=== PATIENT | male | born 1985 | race African-American/Black ===

== ENCOUNTER 2021-03-02 13:22 | Inpatient (IN) | payer MEDICAID, OTHER ==
[~2021-03-02] VITALS: Ht 182.9 cm; Wt 82.4 kg
[2021-03-02] MEDS ORDERED: SODIUM CHLORIDE 0.9% 1,000 ML IVB ONE (13:45)
[2021-03-02 16:55] LABS: Basophils # (auto) 0.1 10 ^3/uL (0-0.2); Eosinophils # (auto) 0 10 ^3/uL (0-0.8); Eosinophils % (auto) 0.1 % (0.0-7.0); Hematocrit 41.6 % (41.0-53.0); Hemoglobin 14.1 g/dL (13.5-17.5); Lymphocytes # (auto) 1.2 10 ^3/uL (0.4-5.4); Lymphocytes % (auto) 15.6 % (10.0-50.0); Mean Corpuscular Hemoglobin 30.6 pg (28.0-32.0); Mean Corpuscular Hgb Conc. 33.9 g/dL (32.0-36.0); Mean Corpuscular Volume 90.4 fL (80.0-100.0); Monocytes # (auto) 0.9 10 ^3/uL (0-1.3); Monocytes % (auto) 11.6 % (0.0-12.0); Neutrophils # (auto) 5.5 10 ^3/uL (1.6-8.6); Neutrophils % (auto) 71.7 % (37.0-80.0); Red Cell Distribution Width 13.4 % (11.8-14.3); White Blood Cell 7.7 10^3/uL (4.4-10.8)
[2021-03-02 17:14] LABS: Albumin 4.3 g/dL (3.4-5.0); Calcium 9.1 mg/dL (8.5-10.1); Potassium 3.6 mmol/L (3.5-5.1)
[2021-03-02 17:17] LABS: BUN/Creatinine Ratio 24.1; Bilirubin, Total 2.2 mg/dL (0.2-1.0); Total Protein 8.3 g/dL (6.4-8.2)
[2021-03-02] MEDS ORDERED: MORPHINE SULFATE INJECTION 2 MG/ML SYRG IV PRN (19:15)
[2021-03-02] MEDS ORDERED: HALOPERIDOL LACTATE 5 MG/ML INJ VIAL IM PRN (19:15)
[2021-03-02] MEDS ORDERED: HYDROcodone-ACET 5/325MG TAB PO PRN (19:15)
[2021-03-02] MEDS ORDERED: FOLIC ACID 1 MG, MULTIPLE VITAMIN 10 ML, THIAMINE INJ 100 MG in D5W 5% 1,000 ML INJ SCH (19:15)
[2021-03-02] MEDS ORDERED: ACETAMINOPHEN 500 MG TAB PO PRN (19:15)
[2021-03-02] MEDS ORDERED: ONDANSETRON HCL 4 MG/2 ML VIAL IV PRN (19:15)
[2021-03-02 21:36] LABS: Folate (Folic Acid) 10.73 ng/mL (5.38-24)
[2021-03-02 22:00] VITALS: BP 135/69
[2021-03-02] MEDS: FOLIC ACID 1 MG, MULTIPLE VITAMIN 10 ML, THIAMINE INJ 100 MG in D5W 5% 1,000 ML INJ SCH (22:32)
[2021-03-03 04:33] VITALS: BP 127/76
[2021-03-03 08:57] VITALS: BP 150/60
[2021-03-03] MEDS: FAMOTIDINE 20 MG TAB PO SCH ×2 (10:00→10:38)
[2021-03-03] MEDS: FOLIC ACID 1 MG, MULTIPLE VITAMIN 10 ML, THIAMINE INJ 100 MG in D5W 5% 1,000 ML INJ SCH (12:21)
[2021-03-03 13:00] VITALS: BP 148/60
[2021-03-03] MEDS ORDERED: LORazepam 2MG/ML-1ML VIAL IV ONE (14:15)
[2021-03-03] MEDS: LORazepam 2MG/ML-1ML VIAL IV SCH (21:14)
[2021-03-03] MEDS ORDERED: LORazepam 2MG/ML-1ML VIAL IV PRN (21:30)
[2021-03-04 05:00] VITALS: BP 138/62
[2021-03-04 05:59] LABS: Urine Bacteria FEW /hpf (None Seen); Urine Blood Negative /uL (Negative); Urine Hyaline Cast FEW /lpf (0 - 2); Urine Mucus FEW (None Seen); Urine Specific Gravity 1.015 (1.001-1.035); Urine WBC 1 /hpf (0 - 3)
[2021-03-04] MEDS: LORazepam 2MG/ML-1ML VIAL IV SCH ×3 (06:00→22:03)
[2021-03-04 06:13] LABS: Alcohol, Urine < 3.0 mg/dL (0-10); Amphetamine Screen, Urine NEGATIVE (NEGATIVE); Barbiturate Scree,Urine NEGATIVE (NEGATIVE); Benzodiazephine Screen, Urine NEGATIVE (NEGATIVE); Cannabinoid Screen, Urine NEGATIVE (NEGATIVE); Cocaine Screen, Urine NEGATIVE (NEGATIVE); Opiate Scree,Urine NEGATIVE (NEGATIVE); Phencyclidine Screen, Urine NEGATIVE (NEGATIVE)
[2021-03-04 07:06] LABS: RPR Non Reactive (Non Reactive)
[2021-03-04 08:00] VITALS: BP 83/48
[2021-03-04 08:44] VITALS: BP 83/48
[2021-03-04] MEDS: FAMOTIDINE 20 MG TAB PO SCH (09:22)
[2021-03-04 13:00] VITALS: BP 118/68
[2021-03-04] MEDS ORDERED: ERGOCALCIFEROL 50,000 UNIT(1.25MG) CAP PO SCH (14:15)
[2021-03-04 16:52] VITALS: BP 103/62
[2021-03-04 22:05] VITALS: BP 125/71
[2021-03-05 05:04] VITALS: BP 116/68
[2021-03-05] MEDS: LORazepam 2MG/ML-1ML VIAL IV SCH ×3 (05:55→22:05)
[2021-03-05 09:00] VITALS: BP 126/80
[2021-03-05] MEDS: FAMOTIDINE 20 MG TAB PO SCH (09:29)
[2021-03-05 13:00] VITALS: BP 122/71
[2021-03-05 17:00] VITALS: BP 131/89
[2021-03-05 22:00] VITALS: BP 126/73
[2021-03-05] MEDS: OLANZapine 5 MG TAB PO SCH (22:06)
[2021-03-06] MEDS: LORazepam 2MG/ML-1ML VIAL IV SCH ×3 (06:00→22:01)
[2021-03-06 08:42] VITALS: BP 119/70
[2021-03-06] MEDS: FAMOTIDINE 20 MG TAB PO SCH (09:19)
[2021-03-06 13:00] VITALS: BP 114/68
[2021-03-06 16:57] VITALS: BP 128/75
[2021-03-06 20:00] VITALS: BP 126/76
[2021-03-06 21:32] VITALS: BP 126/76
[2021-03-06] MEDS: OLANZapine 5 MG TAB PO SCH (22:01)
[2021-03-07 05:27] VITALS: BP 93/61
[2021-03-07] MEDS: LORazepam 2MG/ML-1ML VIAL IV SCH ×3 (06:00→22:00)
[2021-03-07 09:00] VITALS: BP 97/54
[2021-03-07] MEDS: FAMOTIDINE 20 MG TAB PO SCH (09:37)
[2021-03-07 13:00] VITALS: BP 116/75
[2021-03-07 17:00] VITALS: BP 111/63
[2021-03-07 20:00] VITALS: BP 117/76
[2021-03-07 22:00] VITALS: BP 117/76
[2021-03-07] MEDS: OLANZapine 5 MG TAB PO SCH (22:00)
[2021-03-08 04:56] VITALS: BP 109/56
[2021-03-08] MEDS: LORazepam 2MG/ML-1ML VIAL IV SCH ×2 (05:49→15:42)
[2021-03-08 08:50] VITALS: BP 116/65
[2021-03-08] MEDS: FAMOTIDINE 20 MG TAB PO SCH (10:24)
[2021-03-08 13:00] VITALS: BP 119/67
[2021-03-08 17:00] VITALS: BP 114/57
== END 2021-03-08 18:47 | DRG 421 ==
LOC: EDBD 13:22 → ER 13:22 → OVERFLOW 19:15 → WEST WING 21:05
PROVIDERS: ADMIT Nurse Practitioner Acute Care; ATTEND Hospitalist
DX: R62.7 Adult failure to thrive (principal); G93.41 Metabolic encephalopathy; F20.2 Catatonic schizophrenia; E86.0 Dehydration; F32.9 Major depressive disorder, single episode, unspecified; E55.9 Vitamin D deficiency, unspecified; Z81.8 Family history of other mental and behavioral disorders; Z82.49 Family history of ischemic heart disease and other diseases of the circulatory system; Z83.3 Family history of diabetes mellitus; Z20.822 Contact with and (suspected) exposure to COVID-19
CPT/HCPCS: 36415; 70551; 80053; 80307; 80320; 81001; 82306; 82607; 82746; 83735; 84425; 84439; 84443; 85025; 86592; 87426; 93005; 95819; 96361; 96365; G0378

== ENCOUNTER 2024-08-02 23:45 | Emergency (ER) | payer MEDICAID ==
[~2024-08-02] VITALS: Ht 188 cm; Wt 80.8 kg
[2024-08-03 00:10] VITALS: BP 125/95; PULSE 113; RESP 20; TEMP 97.9; O2SAT 95
[2024-08-03] MEDS ORDERED: SILV1CRE82 TOP (00:41)
== END 2024-08-03 00:48 | disposition home or self-care (01) ==
LOC: ER 23:45
DX: S52.001D Unspecified fracture of upper end of right ulna, subsequent encounter for closed fracture with routine healing (principal); T21.1 Burn of first degree of trunk; F12.10 Cannabis abuse, uncomplicated; Z76.0 Encounter for issue of repeat prescription; Z82.49 Family history of ischemic heart disease and other diseases of the circulatory system
CPT/HCPCS: 29125

== ENCOUNTER 2024-08-21 05:56 | Emergency (ER) | payer MEDICAID ==
[~2024-08-21] VITALS: Ht 185.4 cm; Wt 100.0 kg
[2024-08-21 05:56] VITALS: BP 148/91; PULSE 128; RESP 20; O2SAT 97
[~2024-08-21 05:56] MED LIST: SILV1CRE82 TOP
== END 2024-08-21 07:42 | disposition left against medical advice (07) ==
LOC: ER 05:56
DX: S62.91XD Unspecified fracture of right hand, subsequent encounter for fracture with routine healing (principal); Z76.0 Encounter for issue of repeat prescription; X58.XXXD Exposure to other specified factors, subsequent encounter

== ENCOUNTER 2024-09-13 03:49 | Emergency (ER) | payer MEDICAID ==
[~2024-09-13] VITALS: Ht 188 cm; Wt 85.0 kg
[2024-09-13 03:53] VITALS: BP 153/75; PULSE 88; RESP 16; TEMP 97.5; O2SAT 99
[2024-09-13] MEDS: IBUPROFEN 800 MG TAB PO ONE (04:19)
[2024-09-13] MEDS ORDERED: CLOTCRE3 EX (04:31)
--- NOTE | 2024-09-13 04:33 | ED.PDOC ---
Back pain HPI HPI Comments This is a 31-year-old homeless man presents to the ED chief complaint bilateral foot pain. Patient reports dryness and cracking skin, describes pain as burning, states has no lotion has been applying lotion on his feet states has been cold symptoms are worse at night with the cold. Denies any known injury. Denies numbness or weakness, fever chills nausea or vomiting. 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 08/03/24 Information Source: Patient Mode of Arrival: Ambulatory Past Medical History PAST MEDICAL HISTORY: Denies Surgical History: Denies all surgeries Family History Family History: Reviewed,noncontributory to illness, Family hx of DM, Family hx of HTN Family History (Other): Schizophrenia Social History Smoker: Non-Smoker Alcohol: Denies ETOH Use Drugs: Marijuana Lives In: Home Constitutional: denies: chills, diaphoresis, fatigue, fever, malaise, sweats, weakness, others EENTM: denies: blurred vision, double vision, ear bleeding, ear discharge, ear drainage, ear pain, ear ringing, eye pain, eye redness, hearing loss, mouth pain, mouth swelling, nasal discharge, nose bleeding, nose congestion, nose pain, photophobia, tearing, throat pain, throat swelling, voice changes, others Respiratory: denies: cough, hemoptysis, orthopnea, SOB at rest, shortness of breath, SOB with excertion, stridor, wheezing, others Cardiovascular: denies: chest pain, dizzy spells, diaphoresis, Dyspnea on exertion, edema, irregular heart beat, left arm pain, lightheadedness, palpitations, PND, syncope, others Gastrointestinal: denies: abdomen distended, abdominal pain, blood streaked bowels, constipated, diarrhea, dysphagia, difficulty swallowing, hematemesis, melena, nausea, poor appetite, poor fluid intake, rectal bleeding, rectal pain, vomiting, others Genitourinary: denies: burning, dysuria, flank pain, frequency, hematuria, incontinence, penile discharge, penile sore, pain, testicle pain, testicle swelling, urgency, others Neurological: denies: dizziness, fainting, headache, left sided numbness, left sided weakness, numbness, paresthesia, pre-existing deficit, right sided numbness, right sided weakness, seizure, speech problems, tingling, tremors, weakness, others Musculoskeletal: reports: others (Bilateral foot pain); denies: back pain, gout, joint pain, joint swelling, muscle pain, muscle stiffness, neck pain Integumetry: reports: rash (Dry skin bilateral feet); denies: bruises, change in color, change in hair/nails, dryness, laceration, lesions, lumps, wounds, o thers Allergic/Immunocompromised: denies: Difficulty Healing, Frequent Infections, Hives, Itching, others Hematologic/Lymphatic: denies: anemia, blood clots, easy bleeding, easy bruising, swollen glands, others Endocrine: denies: excessive hunger, excessive sweating, excessive thirst, excessive urination, flushing, intolerance to cold, intolerance to heat, unexplained weight gain, unexplained weight loss, others Psychiatric: denies: anxiety, bipolar disorder, depression, hopeless, panic disorder, schizophrenia, sleepless, suicidal, others Physical Exam General Appearance: No Apparent Distress, Normal HEENT: Pharynx Normal Neck: Full Range of Motion, Non-Tender Respiratory: Lungs Clear, No Respiratory Distress, Normal Breath Sounds Cardiovascular: No Murmur, Normal Peripheral Pulses, Regular Rate/Rhythm Breast Exam: Deferred Gastrointestinal: Non Tender, Soft Genitalia: Deferred Pelvic: Deferred Rectal: Deferred Extremities: Normal capillary refill, Normal inspection, Normal range of motion, Non-tender, No pedal edema Musculoskeletal : Apperance: Normal Neurologic: Alert, appellate conferee II-XII nml as Tested, No Motor Deficits, Normal Affect, Normal Mood, No Sensory Deficits Cerebellar Function: Normal Reflexes: Normal Skin: Dry, Normal Color, Rash (Noted bilateral plantar aspect of feet noted dry skin slight erythema noted open lesions, bleeding, drainage or streaking.), Warm Lymphatic: No Adenopathy Was a procedure done? Was a procedure done?: No Back Pain Differential Dx Differential Diagnosis: Musculoskeletal Pain X-Ray, Labs, Meds, VS Vital Signs Date Time Temp Pulse Resp B/P (MAP) Pulse Ox O2 Delivery O2 Flow Rate FiO2 11/8/24 03:53 97.5 88 16 153/75 (101 99 Current Medications Medications (Trade) Dose Ordered Sig/Adriano Route Start Time Stop Time Status Last Admin Ibuprofen (Motrin Tablet) 800 mg ONCE ONCE PO 09/13/24 04:15 09/13/24 04:16 DC 09/13/24 04:19 X-Ray, Labs, Meds, VS Comment Likely a tinea pedis we will prescribe trial of antifungal steroid cream. Advised to keep socks and shoes dry. Advised to applied daily lotion once infection has resolved. Advised to follow up with his PCP in 2-3 days as necessary. Advised to return to the ER for increasing pain, numbness, weakness, fever, or chills. Patient agrees with discharge plan of care. Patient was given ibuprofen for the pain he notes improvement in symptoms. Patient was also provided turkey sandwich and fluids. Time of 1ST Reevaluation: 04:31 Reevaluation 1ST: Improved Patient Education/Counseling: Diagnosis, Treatment, Prognosis, Need For Follow Up Family Education/Counseling: No Family Present Departure 1 Departure Time of Disposition: 04:31 Impression: Primary Impression: Tinea pedis of both feet Disposition: 01 HOME / SELF CARE / HOMELESS Condition: Stable e-Prescriptions Clotrimazole W/ Betamethasone (Clotrimazole/Betamethason 1-0.05 %) 1 Cre Cre 1 APPLIC EX BID for 7 Days, #35 GM Prov: TAD DAVIS 09/13/24 Discharged With: Self Critical Care Note Critical Care Time?: No Stability Stability form required: No TAD DAVIS Sep 13, 2024 04:33
== END 2024-09-13 05:01 | disposition home or self-care (01) ==
LOC: ER 03:49
DX: B35.3 Tinea pedis (principal); F15.90 Other stimulant use, unspecified, uncomplicated; Z59.00 Homelessness unspecified; Z79.899 Other long term (current) drug therapy